=== PATIENT | female | born 1955 | race Hispanic/Latino ===

== ENCOUNTER 2016-09-07 16:46 | Emergency (ER) | payer MEDICARE ==
[2016-09-07] MEDS ORDERED: LASIX IV ONE (20:12)
--- NOTE | 2016-09-07 20:17 | Emergency Department Report ---
HPI - General Chief Complaint: Extremity Problem,Nontraumatic Time Seen by Provider: 09/07/16 20:00 - HPI HPI: Room 24 The patient is a 60-year-old female presenting with a chief complaint bilateral lower extremity edema. The patient states she is currently at [facility] for hallucinations. Wall been hospitalized she states she is only getting half of her prescribed dose of Lasix accidentally. The patient states over the past 3-4 days she has noticed increased bilateral lower extremity edema. Patient admits to occasional shortness of breath was states that her overall helps with this. Location: Bilateral lower extremities, see above Duration: 3-4 days Quality: Swelling Severity: 3+ bilateral lower extremity pitting Modifying factors: [see above] Context: [see above] Mode of transportation: [not driving] ED Past Medical Hx - Past Medical History Hx Hypertension: Yes Hx Diabetes: Yes Hx Psychiatric Treatment: Yes (bipolar) Hx Asthma: Yes Hx COPD: Yes Additional medical history: Afib - Surgical History Additional Surgical History: hysterectomy, shoulder surgery - Family History Family history: no significant - Social History Smoking Status: Current Every Day Smoker Substance Use Type: None - Medications Home Medications: Home Medications Medication Instructions Recorded Confirmed Last Taken Type Furosemide [Lasix TAB] 40 mg PO QDAY #10 tablet 09/07/16 Unknown Rx ED Review of Systems ROS: Stated complaint: EDEMA Other details as noted in HPI Comment: All other systems reviewed and negative Constitutional: denies: chills, fever Eyes: denies: eye pain, eye discharge, vision change ENT: denies: ear pain, throat pain Respiratory: shortness of breath Cardiovascular: denies: chest pain, palpitations Endocrine: no symptoms reported Gastrointestinal: denies: abdominal pain, nausea, diarrhea Genitourinary: denies: urgency, dysuria, discharge Musculoskeletal: denies: back pain, joint swelling, arthralgia Skin: denies: rash, lesions Neurological: denies: headache, weakness, paresthesias Psychiatric: denies: anxiety, depression Hematological/Lymphatic: other (bilateral lower extremity edema) Physical Exam - Physical Exam Vital Signs: Vital Signs 09/07/16 09/07/16 17:41 19:31 Temperature 97.7 F Pulse Rate 86 Respiratory 24 Rate Blood Pressure 144/67 [Left] O2 Sat by Pulse 99 95 Oximetry Physical Exam: GENERAL: The patient is well-developed well-nourished female sitting on stretcher not appearing to be in acute distress. [] HEENT: Normocephalic. Atraumatic. Extraocular motions are intact. Patient has moist mucous membranes. NECK: Supple. Trachea midline CHEST/LUNGS: Diminished breath sounds at the left base. Occasional cough. There is no respiratory distress noted. HEART/CARDIOVASCULAR: Regular. There is no tachycardia. There is no gallop rub or murmur. ABDOMEN: Abdomen is soft, nontender. Patient has normal bowel sounds. There is no abdominal distention. SKIN: There is no rash. There is 3+ bilateral lower extremity pitting edema. There is no diaphoresis. NEURO: The patient is awake, alert, and oriented. The patient is cooperative. The patient has normal speech MUSCULOSKELETAL: There is no evidence of acute injury. ED Course Vital Signs 09/07/16 09/07/16 17:41 19:31 Temperature 97.7 F Pulse Rate 86 Respiratory 24 Rate Blood Pressure 144/67 [Left] O2 Sat by Pulse 99 95 Oximetry ED Medical Decision Making - Lab Data Result diagrams: 09/07/16 20:32 09/07/16 20:32 Laboratory Tests 09/07/16 09/07/16 09/07/16 20:32 20:32 20:32 WBC 6.5 RBC 4.33 Hgb 11.8 Hct 36.2 MCV 84 MCH 27 L MCHC 33 RDW 17.3 H Plt Count 202 Lymph % (Auto) 38.6 H [place] % (Auto) 9.9 H Eos % (Auto) 0.8 Baso % (Auto) 0.9 Lymph # 2.5 [place] # 0.6 Eos # 0.1 Baso # 0.1 Seg Neutrophils % 49.8 Seg Neutrophils # 3.2 PT INR APTT Sodium 144 Potassium 4.0 Chloride 101.7 Carbon Dioxide 26 Anion Gap 20 BUN 13 Creatinine 0.7 Estimated GFR > 60 BUN/Creatinine Ratio 18.57 Glucose 84 Calcium 9.2 Total Creatine Kinase 66 CK-MB (CK-2) 2.0 CK-MB (CK-2) Rel Index 3.0 Troponin T < 0.010 NT-Pro-B Natriuret Pep 184.2 09/07/16 21:04 WBC RBC Hgb Hct MCV MCH MCHC RDW Plt Count Lymph % (Auto) [place] % (Auto) Eos % (Auto) Baso % (Auto) Lymph # [place] # Eos # Baso # Seg Neutrophils % Seg Neutrophils # PT 14.2 INR 1.11 APTT 29.6 Sodium Potassium Chloride Carbon Dioxide Anion Gap BUN Creatinine Estimated GFR BUN/Creatinine Ratio Glucose Calcium Total Creatine Kinase CK-MB (CK-2) CK-MB (CK-2) Rel Index Troponin T NT-Pro-B Natriuret Pep - Radiology Data Radiology results: image reviewed (chest x-ray) interpreted by me: Chest x-ray-no focal infiltrates, no pneumothorax - Differential Diagnosis CHF exacerbation, COPD, peripheral edema Critical care attestation.: If time is entered above; I have spent that time in minutes in the direct care of this critically ill patient, excluding procedure time. ED Disposition Clinical Impression: Bilateral lower extremity edema Disposition: DC/TX PSY HOSP/PSY UNIT Is pt being admited?: No Does the pt Need Aspirin: No Condition: Stable Instructions: Leg Edema (ED) Additional Instructions: Return to the emergency department immediately should you develop worsening symptoms, fever, inability to tolerate food or liquid or any other concerns. Prescriptions: Furosemide [Lasix TAB] 40 mg PO QDAY #10 tablet Referrals: PRIMARY CARE, [Primary Care Provider] - 3-5 Days Time of Disposition: 22:34
[2016-09-07 20:55] LABS: Basophils % (Auto) 0.9 % (0.0-1.8); Eosinophils % (Auto) 0.8 % (0.0-4.3); Hematocrit 36.2 % (30.3-42.9); Hemoglobin 11.8 gm/dl (10.1-14.3); Mean Corpuscular HGB Conc 33 % (30-34); Mean Corpuscular Hemoglobin 27 pg (28-32); Mean Corpuscular Volume 84 fl (79-97); Platelet Count 202 K/mm3 (140-440); Red Blood Count 4.33 M/mm3 (3.65-5.03); Red Cell Distribution Width 17.3 % (13.2-15.2); White Blood Count 6.5 K/mm3 (4.5-11.0)
[2016-09-07 21:20] LABS: Anion Gap 20 mmol/L; BUN/Creatinine Ratio 18.57; Blood Urea Nitrogen 13 mg/dL (7-17); Calcium 9.2 mg/dL (8.4-10.2); Carbon Dioxide 26 mmol/L (22-30); Chloride 101.7 mmol/L (98-107); Creatine Kinase 66 units/L (30-135); Glucose 84 mg/dL (65-100); Sodium 144 mmol/L (137-145)
[2016-09-07 21:47] LABS: INR 1.11 (0.87-1.13)
[2016-09-07 21:48] LABS: Partial Thromboplastin Time 29.6 Sec. (24.2-36.6)
[2016-09-08] VITALS: BP 142/78
--- NOTE | 2016-09-08 08:03 | XRay Report ---
ROUTINE CHEST, TWO VIEWS: HISTORY: Shortness of breath, CHF. Heart size and pulmonary vessels are borderline. The lungs are clear. No evidence for pleural effusion, infiltrate or pneumothorax. The bony structures are within normal limits. IMPRESSION: Borderline heart size and pulmonary venous structures. No CHF.
== END 2016-09-07 23:27 ==
LOC: ED 16:46
DX: R22.43 Localized swelling, mass and lump, lower limb, bilateral (principal); I10 Essential (primary) hypertension; E11.9 Type 2 diabetes mellitus without complications; F31.9 Bipolar disorder, unspecified; J45.909 Unspecified asthma, uncomplicated; J44.9 Chronic obstructive pulmonary disease, unspecified; F17.200 Nicotine dependence, unspecified, uncomplicated
CPT/HCPCS: 36415; 71020; 80048; 82550; 82553; 83880; 84484; 85025; 85610; 85730; 96374; 99284; J1940